=== PATIENT | male | born 1960 | race Caucasian/White ===

== ENCOUNTER 2018-09-25 00:42 | Emergency (ER) | payer BC ==
[2018-09-25] MEDS: TETRACAINE 0.5% 4 ML OPH LEFT EYE (01:36)
[2018-09-25] MEDS: FLUORESCEIN STRIP LEFT EYE (01:36)
== END 2018-09-25 02:20 | disposition home or self-care (01) ==
LOC: FTE 00:42
DX: H57.11 Ocular pain, right eye (principal); F17.210 Nicotine dependence, cigarettes, uncomplicated
CPT/HCPCS: 99283; Z7502